=== PATIENT | male | born 2000 | race African-American/Black ===

== ENCOUNTER 2024-11-28 21:18 | Emergency (ER) | payer BC, SELFPAY ==
--- NOTE | 2024-11-28 | ECG_ITS ---
Test Reason : CHEST PAIN Blood Pressure : */* mmHG Vent. Rate : 75 BPM Atrial Rate : 75 BPM P-R Int : 176 ms QRS Dur : 106 ms QT Int : 362 ms P-R-T Axes : 78 45 65 degrees QTcB Int : 404 ms Normal sinus rhythm with sinus arrhythmia Incomplete right bundle branch block Borderline ECG No previous ECGs available Referred By: Generic ED Physician Electronically Signed By: Serge Garner
--- NOTE | ~2024-11-28 | XR_ITS ---
CLINICAL HISTORY: sob cough --- Additional Notes or Special Instructions: pt reports last time he had a xray he syncopized.... 2 view chest x-ray Comparison: None provided Findings: No consolidation or effusion. Heart size is normal. No acute fracture. IMPRESSION: 1. No acute findings. This document has been electronically signed by: Nabil Silva MD on 11/28/2024 22:40:43
[2024-11-28 21:45] VITALS: BP 111/61; PULSE 80; RESP 20; TEMP 36.7; O2SAT 94; BMI 29.6
[2024-11-28 22:27] LABS: COVID-19 Test Negative (Negative); IDNOW Serial# 55D5AD1C; IDNOW Serial# 6674DD1D; Influenza B2 Negative (Negative)
[2024-11-29] VITALS: BP 125/65; PULSE 74; RESP 19; TEMP 37.1; O2SAT 95
--- OUTSIDE RECORDS SUMMARY | 2024-11-29 00:22 | XMS_ITS | Clinical Summary ---
Author Organization 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 Role Phone Unavailable Primary Care Provider Unavailabl e Social History Tobacco Use Types Packs/Day Years Used Date Smoking Tobacco: Never Assessed Sex and Gender Information Value Date Recorded Sex Assigned at Not on file Legal Sex Male 11:34 PM EST Gender Identity Not on file Sexual Orientation Not on file Plan of Treatment Health Maintenance Due Date Last Done Comments HPV Vaccines (1 - Male 3-dos e series) 05/08/2015 DTaP,Tdap,and Td Vaccines (1 - Tdap) 05/08/2019 Hepatitis B Vaccines (1 of 3 - 19+ 3-dose series) 05/08/2019 Depression Screening 02/18/2024 COVID-19 Vaccine (1 - 2023-2 5 season) 2024 Influenza Vaccine (#1) 2024 RSV Immunization Adult Patie nts (1 - 1-dose 75+ series) 05/08/2075 HIB Vaccines Aged Out No longer eligi ble based on patient's age to complete this topic Hepatitis A Vaccines Aged Out No long er eligible based on patient's age to complete this topic IPV Vaccines Aged Out No longer eligi ble based on patient's age to complete this topic MMR Vaccines Aged Out No longer eligi ble based on patient's age to complete this topic Meningococcal ACWY Vaccine Aged Out N o longer eligible based on patient's age to complete this topic Meningococcal B Vaccine Aged Out No l onger eligible based on patient's age to complete this topic Pneumococcal Vaccine: Pediat rics (0 to 5 Years) and At-Risk Patients (6 to 49 Years) Aged Out No longer eligible b ased on patient's age to complete this topic RSV Immunization Patients Un chris 20 months Aged Out No longer eligible b ased on patient's age to complete this topic Varicella Vaccines Aged Out No longer eligible based on patient's age to complete this topic
--- OUTSIDE RECORDS SUMMARY | 2024-11-29 00:22 | XMS_ITS ---
Author Name [facility] Organization Unknown Care Team Organization Name Specialty Phone Email Start Date End Da te Office of the Fulfillment Mail Clerk ([facility]) 01/02/2024
--- NOTE | 2024-11-29 00:35 | ED.GENADULT ---
HPI - General Adult General Chief complaint: Upper Respiratory Symptoms Stated complaint: CP, vomiting Time Seen by Provider: 11/29/24 00:08 Source: patient Mode of arrival: ambulatory Limitations: no limitations History of Present Illness ED Provider: Dr. Arellano [facility] narrative: 24-year-old male presented hospital today for evaluation of coughing, shortness of breath. Patient stated that he has been feeling sick since Friday. His significant other who is also ill. Patient has been using his albuterol pump at home with some alleviation. He stated that he is feels better at this time. Related Data Previous Rx's ?Medication ?Instructions ?Recorded albuterol sulfate 90 mcg/actuation 2 puff inhalation Q6H PRN 11/29/24 aerosol inhaler (Ventolin HFA) shortness of breath or wheezing #8.5 grams prednisone 20 mg tablet 40 mg (2 x 20 mg) PO DAILY 5 days 11/29/24 #10 tabs Allergies Allergy/AdvReac Type Severity Reaction Status Date / Time No Known Allergies Allergy Verified 11/28/24 21:48 Review of Systems Review of Systems: Pertinent review of systems as mentioned in HPI. All other system otherwise negative. [facility] Past Medical History [facility] Narrative: Medical history as mentioned in [facility] Social History Social History Smoked in Last 30 Days: No Substance Use Type: Marijuana Advance Directives: No Advance Directives Information Provided: No Physical Exam ED Exam Exam: General: Pleasant, no distress, interacting appropriately Head: Normacephalic, atraumatic ENT: oral mucosa moist, neck supple, no tracheal deviation Cardiovascular: regular rate, regular rhythm, no murmurs, rubbing, gallops Respiratory: Slight wheezing bilaterally Neurological: Awake and alert, no facial droop noted Skin: Warm and dry Psychiatric: Appropriate mood and thoughts Vital Signs: Vital Signs - 24 hr 11/28/24 21:45 11/29/24 00:00 11/29/24 00:49 Temperature 98.0 F 98.7 F 98.7 F Pulse Rate 80 74 74 Respiratory Rate 20 19 19 Blood Pressure 111/61 125/65 125/65 Pulse Oximetry 94 95 95 Oxygen Delivery Method Room Air Room Air Room Air BMI result Body Mass Index 29.6 Medical Decision Making Medical Decision Making [facility] Narrative: This is a 24-year-old male presented hospital today for evaluation of shortness of breath and coughing. Patient does have slight wheeze on exam. Chest x-ray is negative for any signs of pneumonia. I suspect patient has had bronchitis from an upper respiratory infection. Plan to discharge patient on some prednisone and and refill his albuterol inhaler. Work note will be provided the patient. Patient will be discharged Differential Diagnosis Differential Diagnoses: The differential diagnosis associated with the presentation includes Upper respiratory infection, bronchitis, pneumonia Lab Data MDM Lab Attestation statement: I reviewed the patient's lab results. Labs: Lab Results 11/28/24 Range/Units 21:54 COVID-19 (DOLORES) Negative (Negative) COVID-19 Clin Com See Note Influenza Type A (KAR) Negative (Negative) Influenza Type B (KAR) Negative (Negative) Influenza A & B Note See Note Independent Interpretation I performed an independent interpretation of an: Plain X-Ray Radiology Impression Discussion of test interpretation with radiology: I have reviewed the radiologist's reading. Discharge Plan Discharge Clinical Impression: Bronchitis Upper respiratory infection Qualifiers: URI type: unspecified URI Qualified Code(s): J06.9 - Acute upper respiratory infection, unspecified Patient Disposition: Home, Self-Care Prescriptions: New albuterol sulfate [Ventolin HFA] 90 mcg/actuation HFA aerosol inhaler 2 puff inhalation Q6H PRN (Reason: shortness of breath or wheezing) Qty: 8.5 0RF prednisone 20 mg tablet 40 mg PO DAILY 5 Days Qty: 10 0RF Stand Alone Forms: Work/School Release Interventions: ED Discharge Assessment Last Done: 11/29/24 00:49 Discharge Date/Time: 11/29/24 00:49 Print Language: Pashto
[2024-11-29 00:49] VITALS: BP 125/65; PULSE 74; RESP 19; TEMP 37.1; O2SAT 95
== END 2024-11-29 00:49 | disposition home or self-care (01) ==
PROVIDERS: Emergency Provider Student in an Organized Health Care Education/Training Program
DX: J06.9 Acute upper respiratory infection, unspecified (principal); J40 Bronchitis, not specified as acute or chronic
CPT/HCPCS: 71046; 87502; 87635; 93005; 99283; 99284

== ENCOUNTER → 2024-11-28 21:41 | Outpatient (BNV) | payer BC, SELFPAY | PROVIDERS: Emergency Provider Student in an Organized Health Care Education/Training Program; Visit Provider Internal Medicine Cardiovascular Disease | DX: I45.10 Unspecified right bundle-branch block (principal) | CPT/HCPCS: 93010 ==

== ENCOUNTER → 2024-11-28 22:08 | Outpatient (BNV) | payer BC, SELFPAY | PROVIDERS: Visit Provider Radiology Diagnostic Radiology | DX: R06.02 Shortness of breath (principal); R05.9 Cough, unspecified | CPT/HCPCS: 71046 ==